=== PATIENT | male | born 1985 | race Caucasian/White ===

== ENCOUNTER 2017-09-09 18:17 | Emergency (ER) | payer OTHER ==
[~2017-09-09] VITALS: Ht 190.5 cm; Wt 96.2 kg
[2017-09-09 18:59] LABS: ABSOLUTE BASOPHIL COUNT 0 /CUMM (0.0-0.2); ABSOLUTE EOSINOPHIL COUNT 0.1 /CUMM (0.0-0.7); ABSOLUTE GRANULOCYTE CT 5.6 /CUMM (1.4-6.5); ABSOLUTE LYMPH COUNT 3.1 /CUMM (1.2-3.4); ABSOLUTE MONOCYTE COUNT 0.5 /CUMM (0.10-0.60); BASOPHIL % 0.3 % (0.0-2.0); EOSINOPHIL % 1.1 % (0-5); GRANULOCYTE % 59.9 % (42.2-75.2); HEMATOCRIT 44.5 % (42-52); MEAN CORPUSCULAR HGB 28.6 PG (27.0-31.0); MEAN CORPUSCULAR HGB CONC 33.7 G/DL (33.0-37.0); MEAN CORPUSCULAR VOLUME 84.7 FL (80.0-94.0); MEAN PLATELET VOLUME 8.5 FL (7.4-10.4); PLATELET COUNT 223 /CUMM (130-400); RBC DISTRIBUTION WIDTH 12.4 % (11.5-14.5); RED BLOOD CELL CT 5.25 /CUMM (4.70-6.10); WHITE BLOOD CELL COUNT 9.3 /CUMM (4.8-10.8)
--- NOTE | 2017-09-09 19:24 | RADIOLOGY REPORT ---
EXAMINATION: XR CHEST CLINICAL INFORMATION: Chest pain. COMPARISON: None TECHNIQUE: 2 views of the chest were obtained. FINDINGS: No airspace opacities or pleural effusions are seen. The cardiomediastinal silhouette is normal. No acute osseous abnormality is seen. IMPRESSION: Clear lungs. No acute process.
--- NOTE | 2017-09-09 20:48 | ED CARDIAC/CP/PALPITATIONS ---
History of Present Illness General Chief Complaint: Chest Pain Stated Complaint: STABBING CP INTERMITTENT STABBING TO DULLING Source: patient Exam Limitations: no limitations Vital Signs & Intake/Output Vital Signs & Intake/Output Vital Signs Date Time Temp Pulse Resp B/P B/P Pulse O2 O2 Flow FiO2 Mean Ox Delivery Rate 09/10 2155 98 Room Air 09/09 2114 98.0 72 18 125/75 99 Room Air 09/09 1859 98.6 09/09 1846 98.6 70 18 175/98 98 Room Air Allergies Coded Allergies: No Known Allergies (09/09/17) Triage Note: PT STATES HE HAS HAD INTERMITTENT STABBING DULL CHEST PAIN THAT STARTED ABOUT NOON TODAY. PT DENIES SOB OR RADIATING PAIN. PT STATES THIS HAS NEVER HAPPEND TO HIM BEFORE. Triage Nurses Notes Reviewed? yes Onset: Abrupt Duration: day(s): (1) Timing: single episode today Quality/Severity: moderate, dull Location: central Radiation: no radiation Activities at Onset: rest Prior Chest Pain/Card Workup: no prior chest pain, no prior cardiac workup Modifying Factors: Worsens With: movement, palpation. Nitro Today/Relief: no nitro taken today Aspirin Today: no aspirin today HPI: 32-year-old female past medical history of asthma presents for evaluation of chest pain. Patient states symptoms started about 12 hours ago while he was at rest. The pain is located in the center of his chest does not radiate described as a dull pain. He rates it initially as a 6 out of 10 now improved to a 3 out of 10. He is not taking any medicine for this. He's never had this before. There are no alleviating or aggravating factors. He denies any associated symptoms including shortness of breath, sweats, chills, nausea, vomiting, back pain or abdominal pain. He does not drink smoke or use any drugs. Nose and again personal or family history of heart disease. Pain does not get worse on exertion. (Pravin Cobb) Past History Travel History Traveled to [place] past 21 day No Medical History Any Pertinent Medical History? see below for history Respiratory: asthma Surgical History Surgical History: unobtainable Psychosocial History What is your primary language Vincentian Tobacco Use: Never used ETOH Use: occasional use Illicit Drug Use: denies illicit drug use Family History Hx Contributory? No (Pravin Cobb) Review of Systems Review of Systems Constitutional: Reports: no symptoms. EENTM: Reports: no symptoms. Respiratory: Reports: no symptoms. Cardiovascular: Reports: see HPI, chest pain. GI: Reports: no symptoms. Genitourinary: Reports: no symptoms. Musculoskeletal: Reports: no symptoms. Skin: Reports: no symptoms. Neurological/Psychological: Reports: no symptoms. Hematologic/Endocrine: Reports: no symptoms. Immunologic/Allergic: Reports: no symptoms. All Other Systems: Reviewed and Negative (Pravin Cobb) Physical Exam Physical Exam General Appearance: well developed/nourished, no apparent distress, alert, awake Head: atraumatic, normal appearance Eyes: Bilateral: normal appearance, PERRL, EOMI. Ears, Nose, Throat: normal pharynx, normal ENT inspection, hearing grossly normal Neck: normal inspection, supple, full range of motion Respiratory: normal breath sounds, no respiratory distress, lungs clear, chest wall tender to palpation over the sternum right and left chest. No bruising swelling or abrasions. Chest wall pain is worsened with range of motion of the bilateral upper extremities Cardiovascular: regular rate/rhythm, normal peripheral pulses Peripheral Pulses: 2+ radial (R), 2+ radial (L) Gastrointestinal: soft, non-tender Back: normal inspection, normal range of motion, no vertebral tenderness Extremities: normal inspection, normal range of motion, no edema Neurologic/Psych: no motor/sensory deficits, awake, alert, oriented x 3, normal gait, normal mood/affect Skin: intact, normal color, warm/dry Lymphatic: no anterior cervical jyoti Core Measures ACS in differential dx? No CVA/TIA Diagnosis No Sepsis Present: No Sepsis Focused Exam Completed? No (Pravin Cobb) Progress Differential Diagnosis: AMI, aortic dissection, cholecystitis, CHF/pulm edema, musculoskeletal pain, PSVT, pulmonary embolism, PUD/GERD, PVCs/PACs, rib fracture, unstable angina Plan of Care: Orders Procedure Date/time Status Heart Healthy Diet 09/10 B Active TROPONIN LEVEL 09/09 2114 Complete EKG 09/09 2114 Active Vital Signs 09/09 2034 Complete TROPONIN LEVEL 09/10 1847 Complete COMPREHENSIVE METABOLIC PANEL 09/09 184 Complete CBC WITHOUT DIFFERENTIAL 09/10 1847 Complete EKG 09/09 1820 Active Laboratory Tests 09/09/17 2115: Troponin I < 0.01 09/09/17 1852: Anion Gap 13, Estimated GFR > 60, BUN/Creatinine Ratio 14.4, Glucose 92, Calcium 9.9, Total Bilirubin 0.6, AST 22, ALT 47, Alkaline Phosphatase 91, Troponin I < 0.01, Total Protein 7.3, Albumin 4.5, Globulin 2.8, Albumin/Globulin Ratio 1.6, CBC w Diff NO MAN DIFF REQ, RBC 5.25, MCV 84.7, MCH 28.6, MCHC 33.7, RDW 12.4, MPV 8.5, Gran % 59.9, Lymphocytes % 33.1, Monocytes % 5.6, Eosinophils % 1.1, Basophils % 0.3, Absolute Granulocytes 5.6, Absolute Lymphocytes 3.1, Absolute Monocytes 0.5, Absolute Eosinophils 0.1, Absolute Basophils 0 Patient seen and evaluated. He is reporting chest pain that started about 12 hours ago. It is improving. It is very reproducible with range of motion and palpation. Initial EKG is within normal limits. He is perc negative. Troponin negative chest x-ray is clear. Patient medicated with ibuprofen we'll do a repeat EKG and troponin. Patient is reporting even more improvement in his pain after ibuprofen. Currently very mild 1 out of 10 pain still reproducible no shortness of breath repeat EKG troponin negative. Patient be discharged to follow-up his primary care doctor. Discussed return precautions in detail. Patient agrees the plan. Diagnostic Imaging: Viewed by Me: Radiology Read. Discussed w/RAD: Radiology Read. CXR Impression: PATIENT: DARON NATARAJAN PRESENT AGE: 32 PATIENT ACCOUNT NO: [id number] : 85 LOCATION: [facility] ORDERING PHYSICIAN: Pravin BAL SERVICE DATE: 09/09/17 EXAM TYPE: RAD - XRY-CHEST XRAY, TWO VIEWS EXAMINATION: XR CHEST CLINICAL INFORMATION: Chest pain. COMPARISON: None TECHNIQUE: 2 views of the chest were obtained. FINDINGS: No airspace opacities or pleural effusions are seen. The cardiomediastinal silhouette is normal. No acute osseous abnormality is seen. IMPRESSION: Clear lungs. No acute process. DICTATED BY: Chuck Gonzalez MD DATE/TIME DICTATED:09/09/171919 CLUSTER BORE OPERATOR:[email or web address] DATE/TIME TRANSCRIBED:09/09/171919 CONFIDENTIAL, DO NOT COPY WITHOUT APPROPRIATE AUTHORIZATION. <Electronically signed in Other Vendor System> SIGNED BY: Chuck Gonzalez MD 09/09/17 1 Initial ED EKG: normal sinus rhythm, no ST T wave changes Repeat EKG: unchanged (Pravin Cobb) Departure Departure Disposition: HOME OR SELF CARE Condition: Stable Clinical Impression Primary Impression: Chest pain Qualifiers: Chest pain type: unspecified Qualified Code: R07.9 - Chest pain, unspecified Referrals: Evens Field MD (PCP/Family) Additional Instructions: Rest and drink plenty of fluids. Tylenol and IBUPROFEN as needed for pain. Follow-up with primary care doctor monitor symptoms return with any concerns. Departure Forms: Customer Survey General Discharge Information (Pravin Cobb) PA/FORMULATION TECHNICIAN Co-Sign Statement Statement: ED Attending supervision documentation- [] I saw and evaluated the patient. I have also reviewed all the pertinent lab results and diagnostic results. I agree with the findings and the plan of care as documented in the PA's/FORMULATION TECHNICIAN's documentation. [x] I have reviewed the ED Record and agree with the PA's/FORMULATION TECHNICIAN's documentation. [] Additions or exceptions (if any) to the PAs/FORMULATION TECHNICIAN's note and plan are summarized below: [] (Jason JOSHUA,Pedro Marin) Critical Care Note Critical Care Note Critical Care Time: non-applicable (Pravin Cobb)
[2017-09-09 22:44] VITALS: BP 134/78
== END 2017-09-09 22:55 ==
LOC: ERH 18:17
PROVIDERS: Physician Assistant Medical
DX: R07.89 Other chest pain (principal)
CPT/HCPCS: 71046; 93005; 93010